=== PATIENT | female | born 1950 | race Caucasian/White ===

== ENCOUNTER → 2024-01-31 10:28 | Outpatient (REF) | payer MEDICARE, OTHER, SELFPAY | LOC: HWWDC 10:28 | PROVIDERS: ATTENDING PHYSICIAN Family Medicine | DX: Z12.31 Encounter for screening mammogram for malignant neoplasm of breast (principal); M79.671 Pain in right foot; M25.571 Pain in right ankle and joints of right foot | CPT/HCPCS: 73610; 73630; 77063; 77067 ==

== ENCOUNTER → 2025-04-17 10:41 | Outpatient (REF) | payer MEDICARE, OTHER, SELFPAY | LOC: HWCARD 10:41 | PROVIDERS: ATTENDING PHYSICIAN Orthopaedic Surgery; FAMILY PHYSICIAN Family Medicine | DX: Z01.818 Encounter for other preprocedural examination (principal) | CPT/HCPCS: 93005 ==

== ENCOUNTER → 2025-07-03 15:15 | Outpatient (REF) | payer MEDICARE, OTHER, SELFPAY | LOC: RAD 15:15 | PROVIDERS: ATTENDING PHYSICIAN Physician Assistant Surgical; FAMILY PHYSICIAN Family Medicine | DX: M79.662 Pain in left lower leg (principal) | CPT/HCPCS: 93971 ==

== ENCOUNTER → 2025-10-03 10:06 | Outpatient (REF) | payer MEDICARE, OTHER, SELFPAY | LOC: RAD 10:06 | PROVIDERS: ATTENDING PHYSICIAN Internal Medicine Hematology & Oncology; FAMILY PHYSICIAN Family Medicine | DX: I82.4Z2 Acute embolism and thrombosis of unspecified deep veins of left distal lower extremity (principal); I82.493 Acute embolism and thrombosis of other specified deep vein of lower extremity, bilateral | CPT/HCPCS: 93970 ==